=== PATIENT | female | born 1990 | race Caucasian/White ===

== ENCOUNTER → 2016-07-19 | Outpatient (CLI) | payer OTHER ==
[~2016-07-19] MED LIST: FERR18TA; OXYC-57 PO; PRENTAB26 PO
== END | disposition home or self-care (01) ==
LOC: C.LAB1850 10:16
PROVIDERS: ATTEND Obstetrics & Gynecology
DX: O28.1 Abnormal biochemical finding on antenatal screening of mother (principal)

== ENCOUNTER → 2016-09-26 | Outpatient (CLI) | payer OTHER ==
[2016-09-26 09:34] LABS: HEMATOCRIT 31.4 % (37-47)
== END | disposition home or self-care (01) ==
LOC: C.LAB1850 07:26
PROVIDERS: ATTEND Obstetrics & Gynecology
DX: O28.1 Abnormal biochemical finding on antenatal screening of mother (principal)

== ENCOUNTER → 2016-10-26 | Outpatient (CLI) | payer OTHER ==
[2016-10-26 11:54] LABS: URINE APPEARANCE CLOUDY (CLEAR); URINE BILIRUBIN NEG (NEG); URINE COLOR YELLOW; URINE EPITHELIAL CELL AUTO >30 /lpf (0-5); URINE NITRITE NEG (NEG); URINE SPECIFIC GRAVITY 1.014 (1.000-1.030); UROBILINOGEN NEG (NEG)
[2016-10-26 12:24] LABS: MANUAL MICROSCOPIC REQUIRED? NO; REVIEW REQ? YES
== END | disposition home or self-care (01) ==
LOC: C.LABSPEC 11:28
PROVIDERS: ATTEND Obstetrics & Gynecology
DX: O28.1 Abnormal biochemical finding on antenatal screening of mother (principal)

== ENCOUNTER → 2016-11-20 | Outpatient (CLI) | payer OTHER | END | disposition home or self-care (01) | LOC: C.LABSPEC 17:33 | PROVIDERS: ATTEND Obstetrics & Gynecology | DX: Z34.83 Encounter for supervision of other normal pregnancy, third trimester (principal) ==

== ENCOUNTER 2016-12-13 23:10 | Outpatient (CLI) | payer OTHER ==
[~2016-12-13] VITALS: Ht 165.1 cm; Wt 80.0 kg
[~2016-12-13 23:10] MED LIST changes: -OXYC-57 PO
[2016-12-14 00:15] VITALS: Ht 165.1 cm; Wt 80.0 kg
--- NOTE | 2016-12-19 12:25 | EDITING REQUIRED CODING QUERY ---
DIAGNOSIS NEEDED To promote full compliance with coding requirements relating to patient care, physician participation is requested in all cases of services tech uncertainty. Please assist us with the question(s) below: Coding Question: The patient received care in labor and delivery on 12/13/16 as noted within the record. Please document the diagnosis that is being addressed by the medication/treatment. Provider Response: DIAGNOSIS: Check labor, term . Not in labor Thank you for your assistance, Kaur Escalera - Blood Donor Unit Assistant
[2016-12-25] MEDS ORDERED: OXYC-57 PO (08:05)
== END 2016-12-14 00:12 | disposition home or self-care (01) ==
LOC: C.OPB 23:10 → C.LD 23:10 → C.OPB 12-14 00:12
PROVIDERS: ATTEND Obstetrics & Gynecology
DX: Z34.83 Encounter for supervision of other normal pregnancy, third trimester (principal); Z3A.39 39 weeks gestation of pregnancy

== ENCOUNTER 2016-12-24 09:08 | Inpatient (IN) | payer OTHER ==
[~2016-12-24] VITALS: Ht 165.1 cm; Wt 83.5 kg
[2016-12-24 09:21] VITALS: Ht 165.1 cm; Wt 83.5 kg
[2016-12-24] MEDS ORDERED: BUPIVACAINE 0.25% 30 ML VIAL ONE (10:47)
[2016-12-24] MEDS ORDERED: EpHEDrine SULFATE INJ 50 MG/ML AMP ONE (10:47)
[2016-12-24] MEDS ORDERED: FENTANYL CITRATE INJ 50 MCG/1 ML 2 ML VIAL ONE (10:48)
[2016-12-24] MEDS ORDERED: FENTANYL 2MCG/ML ROPIV 1.25MG/ML 100ML BAG EPI ONE (10:48)
[2016-12-24] MEDS ORDERED: LACTATED RINGER'S 1000ML 1,000 ML IV SCH (11:00)
[2016-12-24] MEDS: LACTATED RINGER'S 1000ML 1,000 ML IV PRN ×2 (11:01→12:16)
[2016-12-24] MEDS ORDERED: BUTORPHANOL TARTRATE 1 MG/ML VIAL IV PRN (11:15)
[2016-12-24 11:29] LABS: HEMATOCRIT 35.8 % (37-47); MEAN CELL VOLUME 90.9 fL (80-100); MEAN CORPUSCULAR HEMOGLOBIN 29.9 pg (25-34); MEAN PLATELET VOLUME 10.1 fL (7.4-10.4); PLATELET COUNT 260 K/uL (130-400); RED BLOOD COUNT 3.94 M/uL (4.2-5.4); WHITE BLOOD COUNT 13.26 K/uL (4.8-10.8)
[2016-12-24] MEDS ORDERED: OXYTOCIN 30 UNITS/500ML NSS IV ONE (12:13)
[2016-12-24] MEDS ORDERED: NALOXONE HCL INJ 1 MG in SODIUM CHLORIDE 0.9% 1000ML 1,000 ML IV PRN (12:27)
[2016-12-24] MEDS ORDERED: LACTATED RINGER'S 1000ML 500 ML IV PRN (12:27)
[2016-12-24] MEDS ORDERED: DiphenhydrAMINE HCL 50 MG/ML VIAL IV PRN (12:30)
[2016-12-24] MEDS ORDERED: EpHEDrine SULFATE INJ 50 MG/ML AMP IV PRN (12:30)
[2016-12-24] MEDS ORDERED: NALOXONE HCL INJ 0.4 MG/1 ML VIAL/CARP IV PRN (12:30)
[2016-12-24] MEDS ORDERED: NALBUPHINE HCL INJ 10 MG/ML AMP IV PRN (12:30)
[2016-12-24] MEDS ORDERED: ONDANSETRON INJ 2 MG/ML 2 ML VIAL IV PRN (12:30)
[2016-12-24] MEDS ORDERED: NURSING VERBAL MED ORDER ONE (12:30)
[2016-12-24] MEDS ORDERED: FENTANYL 2MCG/ML ROPIV 1.25MG/ML 100ML BAG EPI PRN (12:30)
[2016-12-24] MEDS ORDERED: LANOLIN OINT EXT PRN ×2 (13:00)
[2016-12-24] MEDS ORDERED: OXYTOCIN 30 UNITS/500ML NSS IV PRN (13:00)
[2016-12-24] MEDS ORDERED: HYDROCORTISONE ACETATE 25 MG SUPP PR PRN (13:00)
[2016-12-24] MEDS ORDERED: OXYCODONE/ACETAMINOPHEN 5-325 TAB PO PRN (13:00)
[2016-12-24] MEDS ORDERED: BENZOCAINE 20% AER SPR 82.5 GM CAN EXT PRN (13:00)
[2016-12-24] MEDS ORDERED: SUPERCREAM 0.870 % 15GM JAR EXT PRN (13:00)
[2016-12-24] MEDS: CEFAZOLIN IV 1,000 MG in DEXTROSE 5% 50ML 50 ML IV SCH ×2 (13:41→21:42)
[2016-12-24] MEDS: IBUPROFEN 600 MG TAB PO PRN ×3 (14:16→22:42)
--- NOTE | 2016-12-24 16:13 | Anesthesia Procedure Note ---
Anesthesia Epidural Removal Nt Date & Time Dec 24, 2016 at 16:13 Vital Signs Pain Intensity: 2.0 Notes Mental Status: alert / awake / arousable, participated in evaluation Nausea / Vomiting: adequately controlled Pain: adequately controlled Airway Patency, RR, SpO2: stable & adequate BP & HR: stable & adequate Hydration State: stable & adequate Neuraxial Anesthesia: was administered Anesthetic Complications: no major complications apparent, pt satisfied with anesthetic care Epidural: removed without complications, with tip intact
[2016-12-24 16:15] VITALS: BP 119/79; PULSE 71; TEMP 36.6
--- NOTE | 2016-12-24 16:35 | DELIVERY SUMMARY ---
DATE OF OPERATION: 12/24/2016 DELIVERING SURGEON: Dr. Johnson. ESTIMATED BLOOD LOSS: 300 mL. PREDELIVERY DIAGNOSES: 1. 26-year-old G4, P2-0-1-2 at 41 weeks 0 days. 2. Spontaneous labor. POSTDELIVERY DIAGNOSES: 1. Same. 2. Avulsion of umbilical cord. 3. Manual extraction of placenta. PROCEDURES: Spontaneous vaginal delivery and manual extraction of placenta. FINDINGS: Viable female , Apgars 8 and 9, weight pending. Please see nursery records. Nuchal cord x1 loose, easily reduced. DESCRIPTION OF DELIVERY: The patient presented in spontaneous labor and received spinal anesthesia due to close proximity to delivery. She progressed to complete and began to push. She spontaneously vaginally delivered a viable female in the cephalic presentation. The head delivered in the right occiput anterior position, followed by nuchal cord that was easily reduced. Anterior shoulder was delivered, followed by posterior shoulder, followed by body. The baby was placed on mother's abdomen. The cord was doubly clamped and cut and the baby was handed over to the waiting pediatrics team. Cord segment was obtained for cord gases. Cord blood was obtained. During active management of the third stage of labor, the umbilical cord avulsed from the placenta and therefore the placenta was removed by manual extraction. Sweep of the uterus revealed no retained placental fragments. The bladder was emptied with a Stiles catheter and the uterus began to clamp down with the administration of Pitocin. The cervix, vagina and perineum were inspected and no lacerations were noted. All instruments and sponge counts were correct x2 at the conclusion of the delivery. Mother and baby recovered well in the room in stable and good condition. I attest to the content of the Intraoperative Record and any orders documented therein. Any exception s are noted below.
[2016-12-24 18:45] VITALS: BP 122/84; PULSE 76; TEMP 36.5
[2016-12-24] MEDS: DOCUSATE SODIUM 100 MG CAP PO SCH (20:32)
[2016-12-24 23:30] VITALS: BP 126/83; PULSE 80; TEMP 36.7
[2016-12-25 04:00] VITALS: BP 124/80; PULSE 77; TEMP 36.9
[2016-12-25] MEDS: IBUPROFEN 600 MG TAB PO PRN ×2 (05:27→11:13)
[2016-12-25] MEDS: CEFAZOLIN IV 1,000 MG in DEXTROSE 5% 50ML 50 ML IV SCH (05:53)
[2016-12-25] MEDS: DOCUSATE SODIUM 100 MG CAP PO SCH (07:43)
[2016-12-25 07:45] VITALS: BP 118/79; TEMP 36.6; O2SAT 96
--- NOTE | 2016-12-25 07:58 | Progress Note ---
Subjective Dec 25, 2016. Subjective conversation w/ patient, physical exam Ambulation: ambulating normally Voiding: no voiding problems Passing Gas: Yes Diet Tolerance: Regular Diet Lochia: Moderate Feeding Type: Breast Feeding Pain: controlled Review of Systems Constitutional: No problem reported Respiratory: No problem reported Cardiac: No problem reported Breast: No problem reported Abdomen: No problem reported Female : No problem reported Objective Vital Signs Date Time Temp Pulse Resp B/P (MAP) Pulse Ox O2 Delivery O2 Flow Rate FiO2 12/25/16 04:00 36.9 77 18 124/80 (95) Room Air 12/24/16 23:30 36.7 80 18 126/83 (97) Room Air 12/24/16 23:30 Room Air 12/24/16 18:45 36.5 76 20 122/84 (97) Room Air 12/24/16 16:15 Room Air 12/24/16 16:15 36.6 71 20 119/79 (92) Room Air Physical Exam General Appearance: WELL-APPEARING, NO APPARENT DISTRESS Respiratory/Chest: no respiratory distress Cardiovascular: regular rate, rhythm Abdomen: non tender, soft Fundus: Firm Extremities: normal inspection Laboratory Results Last 24 Hours Test 12/24/16 11:09 12/25/16 06:39 White Blood Count 13.26 K/uL Red Blood Count 3.94 M/uL Hemoglobin 11.8 g/dL 10.8 g/dL Hematocrit 35.8 % 33.0 % Mean Corpuscular Volume 90.9 fL Mean Corpuscular Hemoglobin 29.9 pg Mean Corpuscular Hemoglobin Concent 33.0 g/dl RDW Standard Deviation 44.3 fL RDW Coefficient of Variation 13.3 % Platelet Count 260 K/uL Mean Platelet Volume 10.1 fL Assessment and Plan Post- Day#: 1 Continue Routine Care: PPD#1. Doing well. Requesting discharge home today. Discharge instructions discussed. Followup in office 6w.
--- NOTE | 2016-12-25 07:59 | Discharge Instructions ---
Discharge Instructions Date of Service Dec 25, 2016. Admission Reason for Admission: Check Labor Discharge Discharge Diagnosis / Problem: vaginal delivery Discharge Goals Goal(s): Routine recovery after delivery Activity Recommendations Activity Limitations: per Instructions/Follow-up section . Instructions / Follow-Up Instructions / Follow-Up ACTIVITY RECOMMENDATIONS: * Gradual return to full activity over the next 2-3 weeks. * No lifting - nothing heavier than baby over the next 2-3 weeks. * Do not engage in vigorous exercise, sexual activity or sports until cleared by your physician. * Do not drive or operate any motorized equipment until cleared by your physician. * You may shower/bathe daily. MEDICATIONS: For discomfort or pain, you may use Acetaminophen (Tylenol), Ibuprofen (Advil), or Naproxen (Aleve) following the package directions. For constipation you may use Colace following the package directions. BREAST CARE: If you are not breast feeding: * Wear a supportive bra 24 hours a day for one to two weeks. * Avoid stimulating your breasts and nipples as much as possible during the first few weeks after delivery. * When taking a shower, have the warm water hit your back, not breasts. * When your breasts feel full, apply ice packs. Usually three to four times a day helps ease the discomfort. * Take a mild pain medication (Tylenol / Motrin) when you are uncomfortable. If breast feeding: * Use breast milk to lubricate nipples. Lansinoh cream may be used for sore nipples. You do not need to remove cream prior to breast feeding. If using a different brand of cream, check the label for directions regarding removal of cream prior to nursing. * Wear a supportive bra. * If having problems with breasts or breast feeding, call a digital media sales consultant or your health care provider. EPISIOTOMY CARE: After delivery, if you have an episiotomy (stitches), the following steps will ease discomfort and aid healing. * For the first 24 hours after delivery, place ice packs next to your episiotomy to help reduce swelling. * After the first 24 hour-period, sitz baths, either portable or in the tub, are suggested. A shower with a shower arm sprayed over the episiotomy may be comforting. * Stacy care should be done after each voiding and bowel movement. Squirt warm water from a plastic bottle over the perineum (region of the body between the anus and urinary opening) and pat dry. * Use Dermoplast to ease discomfort. Shake container. [place]on directly over the episiotomy. Place a Tucks on a clean sanitary pad next to your episiotomy. SPECIAL CARE INSTRUCTIONS: When you are discharged from the hospital, it is important for you to follow the instructions listed below: * During the first week at home, you should be able to care for yourself and your baby. In addition, the usual light household activities are encouraged. * Limit your activities to the way you feel. Do not try to clean the house or move furniture. Be sensible. * If you actively engage in sports and have done so up until the time of your delivery, you may resume these activities as soon as you feel able. This may take up to one month or even longer. Use good judgment. * Continue to take your vitamins for at least six weeks after the of your baby. * Your diet need not be limited unless you were on a special diet before your delivery. Breast-feeding mothers need around 2500 calories per day and at least 64-80 ounces of fluid per day (8 to 10 glasses). * You should eat foods from the four major food groups. Crash diets or fad diets are to be avoided. Eating lean meats, fresh fruits and vegetables, low-fat dairy products, high fiber foods and a regular exercise program, will help you get back to your pre- weight without putting your health at risk. * Constipation is sometimes a problem after delivery. Take a mild laxative as needed. If breast feeding, Milk of Magnesia is acceptable to use. You may use a suppository or Fleets enema if no episiotomy. * A daily shower or tub bath is suggested. Be sure to thoroughly and gently dry the perineum. * A bloody vaginal discharge will usually continue until around four weeks post . A small amount of bleeding may continue for as long as six weeks. Vaginal discharge changes from the bright red bleeding after delivery to pink then brownish and finally yellowish-pink before becoming white and disappearing. * Bleeding may increase with activity. Your first period may come in 4-8 weeks. If you are breast feeding, your period may be delayed even longer. * Lititz (sex) can begin whenever both you and your partner feel comfortable and do not have any form of genital infection. It is recommended that you wait at least six weeks for internal and external healing to occur. If you have questions, please talk to your health care practitioner. A condom should be used to prevent infection and . * Foreplay, gentle intercourse and lubrication is very important the first several times to prevent pain. A water-based lubricant such as K-Y jelly or Astroglide may be used. * If you have RH negative blood and your baby is RH positive, you will receive RHOGAM by injection prior to discharge. The nurse will give you a card to keep with you that has the date and place that you received RHOGAM after delivery. * During your care, you had a Rubella screen done to check for the presence of rubella antibodies in your blood. If your test was negative, you will receive a Rubella vaccine prior to discharge. This vaccine may cause a fever, soreness at the injection site and flu-like symptoms. If these symptoms persist, notify your health care practitioner. is not advised for one month after a Rubella vaccine. * Verbalizes understanding of car seat law as reviewed with patient nursing. * Car Seat hand-out given and reviewed with patient by nursing. * Shaken baby information reviewed with patient by nursing. Call you doctor if: * Heavy bleeding (saturating several pads an hour) or passing clots the size of your fist. * A fever >101 degrees F (38.3 degrees C) on two occasions four hours apart and /or chills. * Unusual pain in the pelvic or vaginal areas. * "Baby Blues" lasting longer than two weeks. If you have any questions or concerns, call your health care practitioner at . FOLLOW UP VISIT: * Please call the office at to schedule a 6 week examination. It is important you keep this appointment. It is important for you to make arrangements for either yearly or twice yearly check-ups thereafter. Current Hospital Diet Patient's current hospital diet: Regular OB Diet Discharge Diet Recommended Diet: Regular OB Diet Pending Studies Studies pending at discharge: no Medical Emergencies . Who to Call and When: Medical Emergencies: If at any time you feel your situation is an emergency, please call 911 immediately. . Non-Emergent Contact Non-Emergency issues call your: Primary Care Provider, [employer] Fitter . . "Provider Documentation" section prepared by Brit Johnson. . VTE Core Measure Inpt VTE Proph given/why not?: Treatment not indicated
[2016-12-25] MEDS ORDERED: OXYC-57 PO (08:05)
[2016-12-25 09:22] VITALS: BP 118/79; PULSE 67; TEMP 36.6; O2SAT 96
[2016-12-25 12:30] VITALS: BP 135/76; TEMP 36.6; O2SAT 97
[2016-12-25 15:09] VITALS: BP_DIAS 76; PULSE 67; TEMP 36.6
[2016-12-25] MEDS ORDERED: BISACODYL 5 MG TABEC PO SCH (20:00)
== END 2016-12-25 15:40 | disposition home or self-care (01) | DRG 775 ==
LOC: C.LD 09:08 → C.OPB 09:08 → C.LD 10:37 → C.OBG 16:19
PROVIDERS: ADMIT Obstetrics & Gynecology; ATTEND Obstetrics & Gynecology
PROC: 10E0XZZ Delivery of Products of Conception, External Approach (ICD-10-PCS; principal; 2016-12-24)
DX: O48.0 Post-term pregnancy (principal); O69.89X0 Labor and delivery complicated by other cord complications, not applicable or unspecified; O69.81X0 Labor and delivery complicated by cord around neck, without compression, not applicable or unspecified; Z79.899 Other long term (current) drug therapy; Z37.0 Single live birth; Z3A.41 41 weeks gestation of pregnancy

== ENCOUNTER 2020-06-13 08:23 | Observation (INO) ==
[2020-06-13] MEDS ORDERED: CAPSAICIN CR 0.075% 60 GM TUBE EXT STA (08:49)
[2020-06-13] MEDS ORDERED: diphenhydrAMINE 50 MG/ML VIAL IV STA (08:49)
[2020-06-13] MEDS ORDERED: METOCLOPRAMIDE HCL INJ 5 MG/ML 2 ML VIAL IV STA (08:49)
[2020-06-13] MEDS ORDERED: SODIUM CHLORIDE 0.9% 1000ML 1,000 ML IV ONE (08:49)
[2020-06-13] MEDS ORDERED: ACETAMINOPHEN 1000 MG/100 ML IV IV STA (08:49)
--- NOTE | 2020-06-13 09:04 | Emergency Department Note ---
History of Present Illness General Chief complaint: Abdominal Pain Stated complaint: VOMITING, SEVERE STOMACH PAIN Time Seen by Provider: 06/13/20 08:39 Source: patient Mode of arrival: ambulatory Limitations: no limitations History of Present Illness Provider Complaint: + nausea, + vomiting and + abdominal pain Onset (ago): day(s) 2 Description of Vomiting: + watery and + bilious Associated Abdominal Pain: Yes Location of pain: + diffuse Severity: severe Maximum Pain Intensity: 10 Current Pain Intensity: 10 Quality: + cramping, + aching and + sharp Pain Consistency: + constant Relieved By: + none Exacerbated By: + none Treatments prior to arrival: + none HPI Narrative: This 29-year-old female patient presents to the emergency department today for evaluation of generalized abdominal pain which began yesterday morning. The patient does admit to smoking "medical marijuana" on Sunday evening. She describes a dull ache which has been progressively worsening since yesterday morning. In the middle of the night last night, she awoke with severe nausea and vomiting. The patient states she has had similar pain with an unknown etiology. The pain generally lasts a few days and nothing helps, though it resolves on its own. She has taken no medications for her symptoms. She denies any fever, chest pain, dyspnea, dysuria, urinary frequency, urinary hesitancy, diarrhea, constipation, abnormal vaginal bleeding. Last menstrual period was 1 week ago. She denies any other drug or alcohol use. Home Medications Medication Instructions Recorded Confirmed Type No Known Home Medications 06/13/20 06/13/20 History Allergies Allergy/AdvReac Type Severity Reaction Status Date / Time No Known Allergies Allergy Verified 06/13/20 09:01 Past Med/Surg History Medical History No significant past medical history Surgical History (Updated 06/13/20 @ 11:26 by Kaur Lamas DO) History of lithotripsy History of loop electrical excision procedure (LEEP) History of lumpectomy of right breast History of wisdom tooth extraction Family History Family/Other No problems noted. Father Dyslipidemia Social History Smoking Status: Never smoker marital status: Current Living Situation: Spouse and Family current occupational status: unemployed Feels Safe at Home: Yes Review of Systems A total of 10 systems reviewed and were otherwise negative Physical Exam Vital Signs: Vital Signs - 24 hr 06/13/20 08:30 06/13/20 08:51 06/13/20 10:23 Temperature 36.7 C Temperature Source Temporal Artery Sc an Pulse Rate 53 L Pulse Rate [Apical ] 55 L Respiratory Rate 28 H 18 Blood Pressure 139/76 Blood Pressure [Le ft Arm] 103/72 Blood Pressure Hellen n 97 Blood Pressure Hellen n [Left Arm] 82 Pulse Oximetry 100 96 100 Oxygen Delivery Me thod Room Air Room Air Room Air Sepsis Recent Feve r Within 48 Hours No Sepsis New/Unexpla ined Change in Men greg Status No Sepsis Action Take n by Nursing No Action Required 06/13/20 12:00 Temperature Temperature Source Pulse Rate Pulse Rate [Apical ] 55 L Respiratory Rate Blood Pressure Blood Pressure [Le ft Arm] 124/73 Blood Pressure Hellen n Blood Pressure Hellen n [Left Arm] 90 Pulse Oximetry Oxygen Delivery Me thod Sepsis Recent Feve r Within 48 Hours Sepsis New/Unexpla ined Change in Men greg Status Sepsis Action Take n by Nursing Physical Exam: VITALS: Vitals are noted on the nurse's note and reviewed by myself. BP 139/76, pulse 53, respiratory rate 28, temp 36.7, O2 saturation 100% GENERAL: This is a 29-year-old white female, in no acute distress, nondiaphoretic, well-developed well-nourished. SKIN: The skin was without rashes, erythema, edema, or bruising. There is no tenting of the skin. Capillary refill less than 2 seconds. HEAD: Normocephalic atraumatic. EYES: Conjunctivae without injection, sclerae without icterus. NECK: Supple without nuchal rigidity. No lymphadenopathy. No JVD. HEART: Regular rate and rhythm without murmurs gallops or rubs. LUNGS: Clear to auscultation bilaterally without wheezes, rales or rhonchi. No retractions or accessory muscle use. ABDOMEN: Positive bowel sounds x 4. Diffuse tenderness throughout. Soft, without masses or organomegaly. Gayle sign negative. No guarding or rebound tenderness. MUSCULOSKELETAL: No muscle atrophy, erythema, or edema noted. Full range of motion without joint tenderness in all extremities. No tenderness to palpation. Normal gait. Strength 5/5 throughout. NEURO: Patient was alert and oriented to person place and time. No focal neurological deficits. Course Course The patient was seen and evaluated as above. An order was placed for continuous cardiac monitoring. The monitor shows a sinus bradycardia at a rate of 55 bpm. IV access obtained, labs drawn. Patient medicated with IV fluids, acetaminophen, Reglan, Benadryl, capsaicin cream Imaging performed and reviewed by myself and radiologist as noted. Labs reviewed by myself. I discussed the findings with the patient at bedside. She is complaining of ongoing nausea, but her pain is improved. She was medicated with IV Zofran. I discussed the case with Roman Maya PA-C with general surgery. He did agree to see and evaluate the patient. There was some confusion regarding COVID-19 preop testing, but this was ultimately completed. Please see surgery dictation regarding for management care of this patient. Administered Medications Discontinued Medications Acetaminophen (Acetaminophen 1000 Mg/100 Ml Iv) 1,000 mg IV NOW STA Stop: 06/13/20 08:50 Last Admin: 06/13/20 09:05 Dose: 1,000 mg Documented by: [id number] Capsaicin (Capsaicin Cr 0.075% 60 Gm Tube) 1 appln EXT NOW STA Stop: 06/13/20 08:50 Last Admin: 06/13/20 09:07 Dose: 1 appln Documented by: [id number] Diphenhydramine HCl (Diphenhydramine 50 Mg/Ml Vial) 25 mg IV NOW STA Stop: 06/13/20 08:50 Last Admin: 06/13/20 09:02 Dose: 25 mg Documented by: [id number] Sodium Chloride (Nss 1000ml) 1,000 mls @ 999 mls/hr IV .Q1H1M ONE Stop: 06/13/20 09:49 Last Infusion: 06/13/20 10:07 Dose: 0 mls/hr Documented by: [id number] Admin: 06/13/20 09:03 Dose: 999 mls/hr Documented by: [id number] Cefoxitin Sodium 2,000 mg/ (Dextrose) 60 mls @ 100 mls/hr IV ONE ONE Stop: 06/13/20 12:20 Last Infusion: 06/13/20 12:45 Dose: 0 mls/hr Documented by: [id number] Admin: 06/13/20 12:07 Dose: 100 mls/hr Documented by: [id number] Ioversol (Ioversol 100ml) 94 ml IV ONCE ONE Stop: 06/13/20 10:04 Last Admin: 06/13/20 10:03 Dose: 94 ml Documented by: [id number] Metoclopramide HCl (Metoclopramide Hcl Inj 5 Mg/Ml 2 Ml Vial) 10 mg IV NOW STA Stop: 06/13/20 08:50 Last Admin: 06/13/20 09:03 Dose: 10 mg Documented by: [id number] Ondansetron HCl (Ondansetron Inj 2 Mg/Ml 2 Ml Vial) 4 mg IV NOW STA Stop: 06/13/20 10:53 Last Admin: 06/13/20 10:56 Dose: 4 mg Documented by: [id number] Medical Decision Making Differential Diagnosis + gastroenteritis, + food borne illness, + infections, + appendicitis, + dive rticulitis, + inflammatory bowel disease, + GI bleed, + biliary pathology, + nausea, + vomiting, + diarrhea and + abdominal pain In addition to the above, cannabinoid hyperemesis was considered. Medical Records Attestation: I reviewed the patient's medical records. Home Medications Current Medication List: was personally reviewed by me Laboratory Data Attestation: I reviewed the patient's lab results. Mild leukocytosis of 13,000. No anemia or thrombocytopenia. Coags normal. Renal, hepatic function electrolytes without significant abnormality. Urinalysis positive for 2+ ketones, but no evidence of blood or infection. COVID-19 testing negative. Urine test negative. Result diagrams: 06/13/20 09:00 06/13/20 09:00 Lab Results 06/13/20 06/13/20 06/13/20 Range/Units 09:00 09:00 09:00 WBC 13.04 H (4.8-10.8) K/uL RBC 4.33 (4.2-5.4) M/uL Hgb 13.9 (12.0-16.0) g/dL Hct 40.2 (37-47) % MCV 92.8 (80-100) fL MCH 32.1 (25-34) pg MCHC 34.6 (32-36) g/dL RDW Std Deviation 42.8 (36.4-46.3) fL RDW Coeff of Olivia 12.6 (11.5-14.5) % Plt Count 259 (130-400) K/uL MPV 10.5 H (7.4-10.4) fL Immature Gran % (Auto) 0.2 % Neut % (Auto) 90.5 % Lymph % (Auto) 6.3 % Sampson % (Auto) 2.8 % Eos % (Auto) 0.0 % Baso % (Auto) 0.2 % Neut # (Auto) 11.80 H (1.4-6.5) K/uL Lymph # (Auto) 0.82 L (1.2-3.4) K/uL Sampson # (Auto) 0.37 (0.11-0.59) K/uL Eos # (Auto) 0.00 (0-0.5) K/uL Baso # (Auto) 0.02 (0-0.2) K/uL Immature Gran # (Auto) 0.03 H (0.00-0.02) K/uL PT 10.9 (9.0-12.0) Seconds INR 1.0 (0.9-1.1) APTT 21.5 (21.0-31.0) Seconds PTT Ratio 0.8 Sodium 142 (136-145) mmol/L Potassium 3.5 (3.5-5.1) mmol/L Chloride 107 (98-107) mmol/L Carbon Dioxide 24 (21-32) mmol/L Anion Gap 10.0 (3-11) BUN 11 (7-18) mg/dl Creatinine 0.76 (0.6-1.2) mg/dl Est Cr Clr Drug Dosing Not Reportable Est GFR ( Amer) 122.0 Est GFR (Non-Af Amer) 105.3 BUN/Creatinine Ratio 15.1 (10-20) Glucose 125 H (70-99) mg/dl Calcium 9.5 (8.5-10.1) mg/dl Magnesium 1.7 L (1.8-2.4) mg/dl Total Bilirubin 1.0 (0.2-1) mg/dl AST 26 (15-37) U/L ALT 29 (12-78) U/L Alkaline Phosphatase 53 (45-117) U/L Total Protein 7.6 (6.4-8.2) gm/dl Albumin 4.1 (3.4-5.0) gm/dl Globulin 3.5 (2.5-4.0) gm/dl Albumin/Globulin Ratio 1.2 (0.9-2) Lipase 63 L (73-393) U/L Urine Color Urine Appearance (Clear) Urine pH (4.5-7.5) Ur Specific [place] (1.000-1.030) Urine Protein (Negative) Urine Glucose (UA) (Negative) Urine Ketones (Negative) Urine Blood (Negative) Urine Nitrite (Negative) Urine Bilirubin (Negative) Urine Urobilinogen (Negative) Ur Leukocyte Esterase (Negative) POC Ur Test (NEG) COVID-19 Eval Order COVID-19 PCR Influenza Type A (PCR) Influenza Type B (PCR) RSV (RT-PCR) SARS-CoV-2 Ag (Rapid) (Negative) 06/13/20 06/13/20 06/13/20 Range/Units 11:45 12:13 12:13 WBC (4.8-10.8) K/uL RBC (4.2-5.4) M/uL Hgb (12.0-16.0) g/dL Hct (37-47) % MCV (80-100) fL MCH (25-34) pg MCHC (32-36) g/dL RDW Std Deviation (36.4-46.3) fL RDW Coeff of Olivia (11.5-14.5) % Plt Count (130-400) K/uL MPV (7.4-10.4) fL Immature Gran % (Auto) % Neut % (Auto) % Lymph % (Auto) % Sampson % (Auto) % Eos % (Auto) % Baso % (Auto) % Neut # (Auto) (1.4-6.5) K/uL Lymph # (Auto) (1.2-3.4) K/uL Sampson # (Auto) (0.11-0.59) K/uL Eos # (Auto) (0-0.5) K/uL Baso # (Auto) (0-0.2) K/uL Immature Gran # (Auto) (0.00-0.02) K/uL PT (9.0-12.0) Seconds INR (0.9-1.1) APTT (21.0-31.0) Seconds PTT Ratio Sodium (136-145) mmol/L Potassium (3.5-5.1) mmol/L Chloride (98-107) mmol/L Carbon Dioxide (21-32) mmol/L Anion Gap (3-11) BUN (7-18) mg/dl Creatinine (0.6-1.2) mg/dl Est Cr Clr Drug Dosing Est GFR ( Amer) Est GFR (Non-Af Amer) BUN/Creatinine Ratio (10-20) Glucose (70-99) mg/dl Calcium (8.5-10.1) mg/dl Magnesium (1.8-2.4) mg/dl Total Bilirubin (0.2-1) mg/dl AST (15-37) U/L ALT (12-78) U/L Alkaline Phosphatase (45-117) U/L Total Protein (6.4-8.2) gm/dl Albumin (3.4-5.0) gm/dl Globulin (2.5-4.0) gm/dl Albumin/Globulin Ratio (0.9-2) Lipase (73-393) U/L Urine Color Yellow Urine Appearance Clear (Clear) Urine pH >= 9.0 H (4.5-7.5) Ur Specific [place] > 1.045 H (1.000-1.030) Urine Protein Negative (Negative) Urine Glucose (UA) Negative (Negative) Urine Ketones 2+ H (Negative) Urine Blood Negative (Negative) Urine Nitrite Negative (Negative) Urine Bilirubin Negative (Negative) Urine Urobilinogen Negative (Negative) Ur Leukocyte Esterase Negative (Negative) POC Ur Test (NEG) COVID-19 Eval Order Covid19 [facility]Now [facility] COVID-19 PCR Cancelled Influenza Type A (PCR) Cancelled Influenza Type B (PCR) Cancelled RSV (RT-PCR) Cancelled SARS-CoV-2 Ag (Rapid) (Negative) 06/13/20 06/13/20 Range/Units Unknown Unknown WBC (4.8-10.8) K/uL RBC (4.2-5.4) M/uL Hgb (12.0-16.0) g/dL Hct (37-47) % MCV (80-100) fL MCH (25-34) pg MCHC (32-36) g/dL RDW Std Deviation (36.4-46.3) fL RDW Coeff of Olivia (11.5-14.5) % Plt Count (130-400) K/uL MPV (7.4-10.4) fL Immature Gran % (Auto) % Neut % (Auto) % Lymph % (Auto) % Sampson % (Auto) % Eos % (Auto) % Baso % (Auto) % Neut # (Auto) (1.4-6.5) K/uL Lymph # (Auto) (1.2-3.4) K/uL Sampson # (Auto) (0.11-0.59) K/uL Eos # (Auto) (0-0.5) K/uL Baso # (Auto) (0-0.2) K/uL Immature Gran # (Auto) (0.00-0.02) K/uL PT (9.0-12.0) Seconds INR (0.9-1.1) APTT (21.0-31.0) Seconds PTT Ratio Sodium (136-145) mmol/L Potassium (3.5-5.1) mmol/L Chloride (98-107) mmol/L Carbon Dioxide (21-32) mmol/L Anion Gap (3-11) BUN (7-18) mg/dl Creatinine (0.6-1.2) mg/dl Est Cr Clr Drug Dosing Est GFR ( Amer) Est GFR (Non-Af Amer) BUN/Creatinine Ratio (10-20) Glucose (70-99) mg/dl Calcium (8.5-10.1) mg/dl Magnesium (1.8-2.4) mg/dl Total Bilirubin (0.2-1) mg/dl AST (15-37) U/L ALT (12-78) U/L Alkaline Phosphatase (45-117) U/L Total Protein (6.4-8.2) gm/dl Albumin (3.4-5.0) gm/dl Globulin (2.5-4.0) gm/dl Albumin/Globulin Ratio (0.9-2) Lipase (73-393) U/L Urine Color Urine Appearance (Clear) Urine pH (4.5-7.5) Ur Specific [place] (1.000-1.030) Urine Protein (Negative) Urine Glucose (UA) (Negative) Urine Ketones (Negative) Urine Blood (Negative) Urine Nitrite (Negative) Urine Bilirubin (Negative) Urine Urobilinogen (Negative) Ur Leukocyte Esterase (Negative) POC Ur Test NEG (NEG) COVID-19 Eval Order COVID-19 PCR Influenza Type A (PCR) Influenza Type B (PCR) RSV (RT-PCR) SARS-CoV-2 Ag (Rapid) Negative (Negative) Imaging Data Radiologist's Impression: CT OF THE ABDOMEN AND PELVIS WITH CONTRAST CLINICAL HISTORY: abdominal pain, nausea, vomiting COMPARISON STUDY: CT of the abdomen and pelvis January 19, 2015. TECHNIQUE: Following IV administration of 94 mL of Optiray-320, axial images of the abdomen and pelvis were obtained from the lung bases to the proximal femurs. Images were reviewed in the axial, sagittal, and coronal planes. IV contrast was administered without complication. Automated exposure control was utilized for the study. A dose lowering technique was utilized adhering to the principles of ALARA. CT DOSE: 264.59 mGy.cm FINDINGS: Lung bases are unremarkable. No pneumatosis, free air or portal venous gas is present. Note is made of a 1 cm hypodense segment 6 hepatic lesion which has peripheral nodular enhancement. This favors a hemangioma. No additional hepatic lesions are present. There is no biliary or pancreatic ductal dilatation. The adrenal glands, spleen and left kidney are unremarkable. A 7 mm hypodense focus within the lower pole the right kidney is too small to characterize. Major vasculature is patent. There is no ascites. The caliber and wall thickness of small and large bowel are normal. The appendix is mildly dilated and fluid-filled, measuring 9 mm in caliber. There is mild increased e nhancement of the appendiceal wall with minimal periappendiceal infiltration. There is no free air or abscess. The ovaries are not enlarged. No acute fracture or suspicious lesion is identified within the visualized skeletal structures. IMPRESSION: Findings consistent with acute appendicitis. Mildly dilated, fluid- filled appendix with minimal periappendiceal infiltration. No free air or abscess. ACT 112: Negative or not required by law. Electronically signed by: Jose Corbett M.D. 06/13/2020 10:15 AM Blood Pressure Blood Pressure Findings: Normal blood pressure MDM Narrative This 29-year-old female patient presents to the emergency department for evaluation of generalized abdominal pain, nausea, and vomiting. This incidentally did began the morning after smoking marijuana. Patient has been afebrile. She has been unable to keep down food or fluids. CT imaging completed due to the patient's complaint of generalized abdominal pain. There was note of mildly dilated, fluid-filled appendix with minimal periappendiceal infiltration, consistent with acute appendicitis. Patient does have a mild leukocytosis of 13,000. Her nausea and pain responded to Reglan, Benadryl, IV fluids, and acetaminophen. She did receive a second dose of antiemetics while in the emergency department. The patient will be taken to the operating room from the ED for definitive management. All questions answered to patient satisfaction prior to discharge The chart was completed utilizing [employer] Speech voice recognition software. Grammatical errors, random word insertions, pronoun errors, and incomplete sentences are an occasional consequence of this system due to software limitations, ambient noise, and hardware issues. Any formal questions or concerns about the content, text, or information contained within the body of this dictation should be directly addressed to the provider for clarification. Impression & Plan Acute appendicitis Discharge Plan Visit Data Chief Complaint: Abdominal Pain Stated Complaint: VOMITING, SEVERE STOMACH PAIN ED Provider: Suzie Soto ED Midlevel Provider: Juliet Alexander Discharge Problem: Acute appendicitis Patient Disposition: Admitted As Inpatient Forms Stand Alone Forms: [facility], Virtual Emergency Department, Important Visit Information Prescriptions Prescriptions: No Action No Known Home Medications RF: 0 Referrals Referrals: Justin Singh Jr, DO [Primary Care Provider] -
[2020-06-13 09:19] LABS: Basophils # (auto) 0.02 K/uL (0-0.2); Basophils % (auto) 0.2 %; Hematocrit (blood only) 40.2 % (37-47); Hemoglobin 13.9 g/dL (12.0-16.0); Immature Granulocytes # (auto) 0.03 K/uL (0.00-0.02); Immature Granulocytes % (auto) 0.2 %; Lymphocytes # (auto) 0.82 K/uL (1.2-3.4); Lymphocytes % (auto) 6.3 %; Mean Corpuscular Hemoglobin 32.1 pg (25-34); Mean Corpuscular Hgb Conc 34.6 g/dL (32-36); Mean Corpuscular Volume 92.8 fL (80-100); Mean Platelet Volume 10.5 fL (7.4-10.4); Monocytes # (auto) 0.37 K/uL (0.11-0.59); Monocytes % (auto) 2.8 %; Neutrophils % (auto) 90.5 %; Platelet Count 259 K/uL (130-400); RDW Coefficient of Variation 12.6 % (11.5-14.5); RDW Standard Deviation 42.8 fL (36.4-46.3); Red Blood Count 4.33 M/uL (4.2-5.4); White Blood Count 13.04 K/uL (4.8-10.8)
[2020-06-13 09:34] LABS: Partial Thromboplastin Ratio 0.8; Partial Thromboplastin Time 21.5 Seconds (21.0-31.0); Prothrombin Time 10.9 Seconds (9.0-12.0)
[2020-06-13 09:42] LABS: Alanine Aminotransferase 29 U/L (12-78); Albumin Level 4.1 gm/dl (3.4-5.0); Aspartate Aminotransferase 26 U/L (15-37); BUN Creatinine Ratio 15.1 (10-20); Blood Urea Nitrogen 11 mg/dl (7-18); Calcium 9.5 mg/dl (8.5-10.1); Carbon Dioxide 24 mmol/L (21-32); Chloride 107 mmol/L (98-107); Est GFR (Non-African American) 105.3; Glucose 125 mg/dl (70-99); Lipase 63 U/L (73-393); Magnesium 1.7 mg/dl (1.8-2.4); Potassium 3.5 mmol/L (3.5-5.1); Sodium 142 mmol/L (136-145)
[2020-06-13 09:45] LABS: Albumin Globulin Ratio 1.2 (0.9-2); Alkaline Phosphatase 53 U/L (45-117); Globulin 3.5 gm/dl (2.5-4.0); Total Protein 7.6 gm/dl (6.4-8.2)
[2020-06-13] MEDS ORDERED: IOVERSOL 100ml IV ONE (10:03)
--- NOTE | 2020-06-13 10:16 | CT Scan Report ---
CT OF THE ABDOMEN AND PELVIS WITH CONTRAST CLINICAL HISTORY: abdominal pain, nausea, vomiting COMPARISON STUDY: CT of the abdomen and pelvis January 19, 2015. TECHNIQUE: Following IV administration of 94 mL of Optiray-320, axial images of the abdomen and pelvi s were obtained from the lung bases to the proximal femurs. Images were reviewed in the axial, sagitt al, and coronal planes. IV contrast was administered without complication. Automated exposure contro l was utilized for the study. A dose lowering technique was utilized adhering to the principles of A BELEN. CT DOSE: 264.59 mGy.cm FINDINGS: Lung bases are unremarkable. No pneumatosis, free air or portal venous gas is present. Note is made of a 1 cm hypodense segment 6 hepatic lesion which has peripheral nodular enhancement. This favors a hemangioma. No additional hepatic lesions are present. There is no biliary or pancreatic narciso greg dilatation. The adrenal glands, spleen and left kidney are unremarkable. A 7 mm hypodense focus w ithin the lower pole the right kidney is too small to characterize. Major vasculature is patent. The re is no ascites. The caliber and wall thickness of small and large bowel are normal. The appendix is mildly dilated and fluid-filled, measuring 9 mm in caliber. There is mild increased enhancement of t he appendiceal wall with minimal periappendiceal infiltration. There is no free air or abscess. The o varies are not enlarged. No acute fracture or suspicious lesion is identified within the visualized s keletal structures. IMPRESSION: Findings consistent with acute appendicitis. Mildly dilated, fluid-filled appendix with minimal periappendiceal infiltration. No free air or abscess. ACT 112: Negative or not required by law. Electronically signed by: Jose Corbett M.D. 06/13/2020 10:15 AM
[2020-06-13] MEDS ORDERED: ONDANSETRON INJ 2 MG/ML 2 ML VIAL IV STA (10:52)
[2020-06-13] MEDS ORDERED: PROMETHAZINE HCL 12.5 MG in SODIUM CHLORIDE 0.9% 50 ML IV PRN ×2 (11:27→15:45)
[2020-06-13] MEDS ORDERED: MoRPHine SULFATE 10 MG/ML CARP/VIAL IV PRN (11:27)
[2020-06-13] MEDS ORDERED: ePHEDrine sulfate 50 MG/ML AMP IV PRN (11:27)
[2020-06-13] MEDS ORDERED: ATROPINE SULFATE 0.1 MG/ML 10ML SYR IV PRN (11:27)
[2020-06-13] MEDS ORDERED: ONDANSETRON INJ 2 MG/ML 2 ML VIAL IV PRN ×2 (11:27→15:45)
[2020-06-13] MEDS ORDERED: fentaNYL citrate 100 MCG/2 ML VIAL IV PRN (11:27)
[2020-06-13] MEDS ORDERED: MEPERIDINE HCL 25 MG/ML CARP/VIAL IV PRN (11:27)
--- NOTE | 2020-06-13 11:27 | Anesthesiology Consultation ---
Date of Service June 13, 2020 Assessment & Plan Chart Review Chart Review: Acceptable Risk for Surgery Consults Requested none awaiting albertot COVID test results ASA [id number] Proposed Anesthesia Anesthesia Type: General Risk / Benefits Reviewed With: PT / POA / Parent / Guardian, Accepts Plan and Informed Consent Obtained History Surgery Operation Date: 06/13/20 13:30 Proposed Procedures p Laparoscopic Appendectomy - Justin Dao MD, FACS Height/Weight Height: 5 ft 6 in Weight: 54.431 kg Allergies Allergy/AdvReac Type Severity Reaction Status Date / Time No Known Allergies Allergy Verified 06/13/20 09:01 Medications Home Medications Medication Instructions Recorded Confirmed Last Taken No Known Home Medications 06/13/20 06/13/20 Unknown Additional Notes: vomiting in ER NPO Date Last Intake of Fluids: 06/13/20 Time Last Intake of Fluids: 00:00 Date Last Intake of Solids: 06/13/20 Time Last Intake of Solids: 00:00 Past Medical History Medical History No significant past medical history Exercise / Class Metabolic Activity II 4-5 Yardwork/Stairs/Walk up hill Past Family History Family History Family/Other No problems noted. Father Dyslipidemia Past Surgical History Surgical History History of lithotripsy History of loop electrical excision procedure (LEEP) History of lumpectomy of right breast History of wisdom tooth extraction Past Anesthesia History No Hx of Anesthesia Complications and No Family Hx of Anesthesia Complications History of PONV No Hx of PONV and No Hx of Motion Sickness Social History Smoking Status: Never smoker Physical Exam Vital Signs Last Vital Signs Temp 36.7 C 06/13/20 08:30 Pulse 55 L 06/13/20 12:00 Resp 18 06/13/20 10:23 BP 124/73 06/13/20 12:00 Pulse Ox 100 06/13/20 10:23 ENMT Mouth: no TMJ abnormality Thyromental Distance: > or= 3.5 Finger Breadths Mallampati Class: II Neck normal visual inspection and trachea midline; neck extension not limited Respiratory normal respiratory effort Auscultation: lungs clear to auscultation bilaterally Cardiovascular Rate/Rhythm: regular rate and regular rhythm Heart Sounds: no murmur Musculoskeletal Spine: normal cervical ROM Extremities: full ROM of extremities Neurologic moves all extremities Psychiatric Orientation: alert and oriented x 3 Testing Laboratory Results 06/13/20 09:00 06/13/20 09:00 PT 10.9 Seconds (9.0-12.0) 06/13/20 09:00 INR 1.0 (0.9-1.1) 06/13/20 09:00 APTT 21.5 Seconds (21.0-31.0) 06/13/20 09:00 Urine Color Yellow 06/13/20 11:45 Urine Appearance Clear (Clear) 06/13/20 11:45 Urine pH >= 9.0 (4.5-7.5) H 06/13/20 11:45 Ur Specific [place] > 1.045 (1.000-1.030) H 06/13/20 11:45 Urine Protein Negative (Negative) 06/13/20 11:45 Urine Glucose (UA) Negative (Negative) 06/13/20 11:45 Urine Ketones 2+ (Negative) H 06/13/20 11:45 Urine Nitrite Negative (Negative) 06/13/20 11:45 Ur Leukocyte Esterase Negative (Negative) 06/13/20 11:45 Urine WBC (Auto) 1-5 /hpf (0-5) 06/13/20 11:45 Urine RBC (Auto) 0-4 /hpf (0-4) 06/13/20 11:45 U Hyaline Cast (Auto) 0 /lpf (0-5) 06/13/20 11:45 U Epithel Cells (Auto) >30 /lpf (0-5) H 06/13/20 11:45 Urine Bacteria (Auto) 1+ (Negative) H 06/13/20 11:45 06/13/20 Unknown POC Ur Test NEG
[2020-06-13] MEDS ORDERED: HYDROmorphone INJ 0.5 MG/0.5 ML SYR IV PRN (11:28)
[2020-06-13] MEDS ORDERED: HYDROmorphone INJ 1 MG/ML SYRINGE IV PRN ×2 (11:28→15:45)
--- NOTE | 2020-06-13 11:31 | History & Physical Report ---
Date of Service June 13, 2020 Assessment & Plan (1) Acute appendicitis: Plan is for laparoscopic appendectomy possible open appendectomy She does understand possible complications of bleeding infection bladder and bowel injury She does wish to proceed History of Present Illness Primary Care Provider: Justin Singh Jr, 29-year-old female with periumbilical abdominal pain And on CT scan to have acute appendicitis Her white blood cell count is 13,000 She is nauseated Allergies Allergy/AdvReac Type Severity Reaction Status Date / Time No Known Allergies Allergy Verified 06/13/20 09:01 Home Medications Medication Instructions Recorded Confirmed Type No Known Home Medications 06/13/20 06/13/20 History Past Med/Surg History Medical History (Updated 06/13/20 @ 11:31 by Justin Dao MD, FACS) No significant past medical history Surgical History (Updated 06/13/20 @ 11:26 by Kaur Lamas DO) History of lithotripsy History of loop electrical excision procedure (LEEP) History of lumpectomy of right breast History of wisdom tooth extraction Family History Family/Other No problems noted. Father Dyslipidemia Social History Smoking Status: Never smoker marital status: Current Living Situation: Spouse and Family current occupational status: unemployed Feels Safe at Home: Yes Review of Systems All systems reviewed & are unremarkable except as noted in HPI & below Physical Exam Constitutional: well developed and well nourished Mild distress from abdominal pain Eyes: + anicteric sclerae Respiratory: normal respiratory effort; no respiratory distress Cardiovascular: Rate/Rhythm: regular rate and regular rhythm Gastrointestinal (Abdomen): Her abdomen is soft but she does have significant periumbilical into the right abdominal pain Skin: no rashes, warm and dry Neurologic: awake Psychiatric: Orientation: alert Results & Data ([facility]) Vital Signs (Past 12 Hours) Vital Signs Temp Pulse Pulse Resp BP BP Pulse Ox 06/13/20 10:23 55 L 18 103/72 100 06/13/20 08:51 96 06/13/20 08:30 36.7 C 53 L 28 H 139/76 100 I did review her CAT scan
[2020-06-13] MEDS ORDERED: cefOXitin 2,000 MG in DEXTROSE 5% 50 ML IV ONE (11:45)
[2020-06-13] MEDS ORDERED: MIDAZOLAM HCL 1 MG/ML 2ML VIAL ONE (11:58)
[2020-06-13] MEDS ORDERED: fentaNYL citrate 100 MCG/2 ML VIAL ONE ×2 (11:58→13:52)
[2020-06-13 12:16] LABS: Appearance Urine Clear (Clear); Bacteria Urine Automated 1+ (Negative); Bilirubin Urine Negative (Negative); Blood Urine Negative (Negative); Color Urine Yellow; Epithelial Cell Urine Auto >30 /lpf (0-5); Glucose Urine UA Negative (Negative); Ketones Urine 2+ (Negative); Leukocyte Esterase Urine Negative (Negative); Nitrite Urine Negative (Negative); Specific Gravity Urine > 1.045 (1.000-1.030); Urobilinogen Urine Negative (Negative); pH Urine >= 9.0 (4.5-7.5)
[2020-06-13 12:19] LABS: Protein Urine Negative (Negative); Sulfosalicylic Acid Urine Negative (Negative)
[2020-06-13] MEDS ORDERED: BUPIVACAINE 0.5 % 5 MG/1 ML MPF 30ML VIAL ONE (12:45)
[2020-06-13 13:03] LABS: Cast Urine Automated 0 /lpf (0-5); RBC Urine Automated 0-4 /hpf (0-4)
[2020-06-13] MEDS ORDERED: ONDANSETRON INJ 2 MG/ML 2 ML VIAL ONE (13:37)
[2020-06-13] MEDS ORDERED: SUCCINYLCHOLINE CHLORIDE 20 MG/ML 10 ML VIAL IV ONE (13:37)
[2020-06-13] MEDS ORDERED: PROPOFOL IV EMULSION 10 MG/ML 20 ML VIAL IV ONE (13:37)
[2020-06-13] MEDS ORDERED: ROCURONIUM BROMIDE 10 MG/ML 5 ML VIAL IV ONE (13:37)
[2020-06-13] MEDS ORDERED: ARTIFICIAL TEARS OP OINT 3.5 GM TUBE ONE (13:37)
[2020-06-13] MEDS ORDERED: LIDOCAINE HCL 2% 2 ML VIAL/AMP(20MG/ML) INFIL ONE (13:37)
[2020-06-13] MEDS ORDERED: DEXAMETHASONE SOD INJ 4 MG/ML VIAL ONE (13:46)
[2020-06-13] MEDS ORDERED: NEOSTIGMINE METHYLSULFATE 5 MG/5 ML SYR ONE (14:02)
[2020-06-13] MEDS ORDERED: GLYCOPYRROLATE 0.2 MG/ML VIAL ONE (14:02)
--- NOTE | 2020-06-13 14:10 | Post Operative Brief Note ---
PG Immediate Post Op with CF Date of Surgery June 13, 2020 Pre & Post Diagnosis Operation Date: 06/13/20 13:30 Pre-Op Diagnosis: Acute Appendicitis Post-Op Diagnosis: Acute Appendicitis I identified the patient and participated in the time-out.: Yes Procedure Operation Date: 06/13/20 13:30 Actual Procedures p Laparoscopic Appendectomy - Justin Dao MD, FACS Surgeon Justin Dao MD, FACS Insulation Cutter And Former Chas Maya Estimated Blood Loss 5 Findings Consistent with Post-Op Diagnosis Specimens Specimen Description: a. appendix
[2020-06-13] MEDS ORDERED: ACETAMINOPHEN 1,000 MG/100 ML VIAL IV ONE (14:11)
--- NOTE | 2020-06-13 15:02 | Anesthesiology Progress Note ---
Date of Service June 13, 2020 Anesthesia Post Procedure Vital Signs Vital Signs: Temp Pulse Pulse Resp BP BP Pulse Ox 06/13/20 14:55 36.9 C 57 L 19 106/67 97 06/13/20 14:45 59 L 21 108/71 98 06/13/20 14:35 62 23 113/72 100 06/13/20 14:25 59 L 23 114/61 99 06/13/20 14:19 36.8 C 85 22 133/67 99 06/13/20 12:00 55 L 124/73 06/13/20 10:23 55 L 18 103/72 100 06/13/20 08:51 96 06/13/20 08:30 36.7 C 53 L 28 H 139/76 100 Pain Intensity Abdomen: Pain Intensity: 5 Transfer of Care Handoff Completed per policy Notes Mental Status: alert / awake / arousable and participated in evaluation Patient Amnestic to Procedure: Yes Nausea / Vomiting: adequately controlled Pain: adequately controlled Airway Patency, RR, SpO2: stable & adequate BP & HR: stable & adequate Hydration State: stable & adequate Anesthetic Complications: no major complications apparent and Pt Satisfied with anesthetic care
[2020-06-13] MEDS ORDERED: IBUPROFEN 600 MG TAB PO PRN (15:45)
[2020-06-13] MEDS ORDERED: PROMETHAZINE HCL 25 MG in SODIUM CHLORIDE 0.9% 50 ML IV PRN (15:45)
[2020-06-13] MEDS ORDERED: HYDROCODONE/ACETAMOPHEN 5/325MG TAB PO PRN (15:45)
[2020-06-13] MEDS ORDERED: ACETAMINOPHEN 325 MG TAB PO PRN (15:45)
[2020-06-13] MEDS: HYDROCODONE/ACETAMOPHEN 5/325MG TAB PO PRN ×2 (16:14→22:04)
[2020-06-13] MEDS: SODIUM CHLORIDE 0.9% 1000ML 1,000 ML IV SCH (16:15)
[2020-06-13] MEDS: HYDROmorphone INJ 0.5 MG/0.5 ML SYR IV PRN (18:13)
--- NOTE | 2020-06-13 21:42 | Operative Report (OR) ---
DATE OF OPERATION: 06/13/2020 NAME OF OPERATION: Laparoscopic appendectomy. PREOPERATIVE DIAGNOSIS: Acute appendicitis. POSTOPERATIVE DIAGNOSIS: Acute appendicitis. STAFF SURGEON: Jsutin Dao MD. [id number] OPERATOR: Lex Maya PA-C. ANESTHESIA: General. DESCRIPTION OF PROCEDURE: The patient was brought in the operating room and placed on the operating table in supine position. Her abdomen was prepped and draped in usual fashion. My tutoring assistant helped with prepping, draping, removal of the appendix and closure of the wounds. 0.5% plain Marcaine was used to anesthetize all incisions. Incision was made above the umbilicus, carrying dissection down to the fascia, placing a Veress needle producing pneumoperitoneum, placing a 5 mm port. Under visualization, a second 5 mm port was placed suprapubically and then a 12 mm port placed in the left lower quadrant. The cecum was reflected. The appendix retracted. The base of the appendix was then transected using the Endo YAKOV stapler and then the mesoappendix transected using the Endo YAKOV stapler. Good hemostasis was maintained. Irrigation was performed. The appendix was placed into an Endobag and then removed through the left lower quadrant site, 5 mm port site and 12 mm port site were both removed. There was no bleeding. The umbilical site was removed. The 12 mm site closed using 0 Vicryl for the fascia, 2-0 plain for the subcutaneous tissue. Skin reapproximated using subcuticular 4-0 Monocryl, Steri-Strips in the left lower quadrant and Dermabond in the other 2 sites. The patient was transferred to recovery room in stable condition. I attest to the content of the Intraoperative Record and any orders documented therein. Any exception s are noted below.
[2020-06-14] MEDS: HYDROmorphone INJ 0.5 MG/0.5 ML SYR IV PRN ×2 (00:02→07:03)
[2020-06-14] MEDS: SODIUM CHLORIDE 0.9% 1000ML 1,000 ML IV SCH (05:31)
[2020-06-14] MEDS: HYDROCODONE/ACETAMOPHEN 5/325MG TAB PO PRN ×2 (05:33→10:23)
--- NOTE | 2020-06-16 22:37 | Discharge Summary (DS) ---
PRINCIPAL DIAGNOSIS: Acute appendicitis. PROCEDURES: The patient underwent laparoscopic appendectomy. HISTORY OF PRESENT ILLNESS: The patient is a 29-year-old female presenting to the Emergency Room with acute abdominal pain, found on CAT scan to have acute appendicitis. HOSPITAL COURSE: She was taken to the operating room on 06/13/2020, where she underwent laparoscopic appendectomy, which she tolerated well. She was felt stable for discharge the next day to be followed in the surgical clinic within 1-2 weeks.
== END 2020-06-14 12:34 | disposition home or self-care (01) ==
LOC: 3N 08:23 → ED 08:23 → 3N 13:14